=== PATIENT | female | born 1985 | race Caucasian/White ===

== ENCOUNTER 2017-05-10 00:15 | Emergency (ER) | payer MEDICAID ==
[~2017-05-10] VITALS: Ht 152.4 cm; Wt 45.4 kg
[2017-05-10 00:20] VITALS: BP 121/81
== END 2017-05-10 01:36 | disposition left against medical advice (07) ==
LOC: ER 00:15
DX: S43.005A Unspecified dislocation of left shoulder joint, initial encounter (principal); Z53.21 Procedure and treatment not carried out due to patient leaving prior to being seen by health care provider; W50.0XXA Accidental hit or strike by another person, initial encounter; Y93.89 Activity, other specified; Y92.89 Other specified places as the place of occurrence of the external cause; Y99.8 Other external cause status

== ENCOUNTER 2018-07-09 06:09 | Emergency (ER) | payer MEDICAID ==
[~2018-07-09] VITALS: Ht 152.4 cm; Wt 45.4 kg
[2018-07-09 06:37] VITALS: BP 119/84
== END 2018-07-09 07:25 | disposition left against medical advice (07) ==
LOC: ER 06:09
DX: N89.8 Other specified noninflammatory disorders of vagina (principal); Z53.21 Procedure and treatment not carried out due to patient leaving prior to being seen by health care provider

== ENCOUNTER 2019-03-05 22:37 | Emergency (ER) | payer MEDICAID ==
[~2019-03-05] VITALS: Ht 152.4 cm; Wt 54.1 kg
[2019-03-05 23:17] LABS: Urine Bacteria NONE SEEN /hpf (None Seen); Urine Blood Negative /uL (Negative); Urine Mucus FEW (None Seen); Urine Specific Gravity 1.019 (1.001-1.035); Urine WBC 23 /hpf (0 - 5)
[2019-03-05 23:26] LABS: Alcohol, Urine < 3.0 mg/dL (0-5); Amphetamine Screen, Urine POSITIVE (NEGATIVE); Barbiturate Scree,Urine NEGATIVE (NEGATIVE); Benzodiazephine Screen, Urine NEGATIVE (NEGATIVE); Cannabinoid Screen, Urine POSITIVE (NEGATIVE); Cocaine Screen, Urine NEGATIVE (NEGATIVE); Phencyclidine Screen, Urine NEGATIVE (NEGATIVE)
[2019-03-05 23:35] LABS: Opiate Scree,Urine NEGATIVE (NEGATIVE)
[2019-03-05 23:36] LABS: Basophils # (auto) 0.1 uL; Basophils % (auto) 0.6 % (0.0-2.0); Eosinophils # (auto) 0.2 uL; Eosinophils % (auto) 1.7 % (0.0-7.0); Hematocrit 35.4 % (36.0-46.0); Hemoglobin 11.8 g/dL (12.2-16.2); Lymphocytes # (auto) 1.6 uL; Lymphocytes % (auto) 13.4 % (10.0-50.0); Mean Corpuscular Hemoglobin 31.3 pg (28.0-32.0); Mean Corpuscular Hgb Conc. 33.3 g/dL (32.0-36.0); Mean Corpuscular Volume 94.2 fL (80.0-100.0); Monocytes # (auto) 0.8 uL; Monocytes % (auto) 6.8 % (0.0-12.0); Neutrophils # (auto) 9.1 uL; Neutrophils % (auto) 77.5 % (37.0-80.0); Platelet Count (auto) 389 10^3/uL (140-450); Red Blood Cells 3.76 10^6/uL (4.0-5.20); Red Cell Distribution Width 13.5 % (11.8-14.3); White Blood Cell 11.7 10^3/uL (4.4-10.8)
[2019-03-05 23:52] LABS: Calcium 8.2 mg/dL (8.5-10.1); Potassium 3.6 mmol/L (3.5-5.1)
[2019-03-05 23:55] LABS: Albumin 2.8 g/dL (3.4-5.0)
[2019-03-05 23:57] LABS: Bilirubin, Total 0.1 mg/dL (0.2-1.0); Total Protein 6.8 g/dL (6.4-8.2)
[2019-03-06 00:45] VITALS: BP 101/65
== END 2019-03-06 00:49 ==
LOC: EDBD 22:37 → EDUNIT# 22:37 → ER 22:47
DX: O99.322 Drug use complicating pregnancy, second trimester (principal); O99.332 Smoking (tobacco) complicating pregnancy, second trimester; O26.892 Other specified pregnancy related conditions, second trimester; F12.10 Cannabis abuse, uncomplicated; F17.210 Nicotine dependence, cigarettes, uncomplicated; Z3A.19 19 weeks gestation of pregnancy
CPT/HCPCS: 36415; 76805; 80053; 80307; 81001; 81025; 85025

== ENCOUNTER 2019-05-04 20:39 | Emergency (ER) | payer MEDICAID ==
[~2019-05-04] VITALS: Ht 152.4 cm; Wt 54.4 kg
[2019-05-05 00:50] VITALS: BP 109/67
== END 2019-05-05 01:07 ==
LOC: ER 20:40
DX: O26.893 Other specified pregnancy related conditions, third trimester (principal); O99.333 Smoking (tobacco) complicating pregnancy, third trimester; F17.210 Nicotine dependence, cigarettes, uncomplicated; O99.323 Drug use complicating pregnancy, third trimester; F12.10 Cannabis abuse, uncomplicated; Z3A.28 28 weeks gestation of pregnancy
CPT/HCPCS: 76805